=== PATIENT | female | born 1960 | race Caucasian/White ===

== ENCOUNTER 2016-12-30 10:41 | Outpatient (CLI) | payer OTHER ==
[2016-12-30 11:28] LABS: eGFR (African) > 60; eGFR (Non-African) > 60
== END 2016-12-30 10:42 ==
LOC: LAB 10:41
PROVIDERS: ATTEND Family Medicine
DX: Z00.00 Encounter for general adult medical examination without abnormal findings (principal)
CPT/HCPCS: 36415; 80053; 80061

== ENCOUNTER 2017-01-20 12:39 | Outpatient (CLI) | payer OTHER | END 2017-01-20 12:40 | LOC: LABRHC 12:39 | PROVIDERS: ATTEND Family Medicine | DX: Z12.4 Encounter for screening for malignant neoplasm of cervix (principal) | CPT/HCPCS: 88148; G0143 ==

== ENCOUNTER 2019-01-11 10:45 | Outpatient (CLI) | payer OTHER ==
[2019-01-11 11:36] LABS: HDL 58 mg/dL (>40); eGFR (Non-African) > 60
[2019-01-11 12:04] LABS: BASOPHILS % 0.6 % (0.0-1.5); NEUTROPHILS # 2.7 # k/uL (1.4-7.7)
== END 2019-01-11 10:47 ==
LOC: LAB 10:45
PROVIDERS: ATTEND Family Medicine
DX: Z13.0 Encounter for screening for diseases of the blood and blood-forming organs and certain disorders involving the immune mechanism (principal); Z13.220 Encounter for screening for lipoid disorders
CPT/HCPCS: 36415; 80053; 80061; 85025